=== PATIENT | female | born 1965 | race Caucasian/White ===

== ENCOUNTER 2018-08-09 16:53 | Emergency (ER) | payer MEDICARE, OTHER ==
--- NOTE | 2018-08-09 16:59 | PDOC ---
Rapid Medical Evaluation Time Seen by Provider: 08/09/18 16:58 Medical Evaluation: Allergies Allergy/AdvReac Type Severity Reaction Status Date / Time codeine [Codeine] Allergy ITCHING/DONALDO Verified 08/07/13 13:19 H cortisone [Cortisone] Allergy ITCHING Verified 08/07/13 13:19 RASH 08/09/18 16:58 I have performed a brief in person evaluation of this patient The patient presents with a chief complaint of 2 months of 08/14 RUQ pain radiating to the back and R leg. (+)diarrhea for 2 days. No urinary symptoms (+) h/o kidney stones Pertinent physical exam findings: In mild distress from pain, unlabored breathing. I have ordered the following: CBC, CMP, Lipase, UA, Ucx, PT/INR, RUQ sono. R kidney sono The patient will proceed to the ED for further eval 08/09/18 17:06 Discharge Disposition - Diagnosis Abdominal pain - Referrals - Patient Instructions - Post Discharge Activity
[2018-08-09 17:01] VITALS: BP 146/86; PULSE 87; TEMP 98.5; BMI 29.0
[2018-08-09 17:41] LABS: VENOUS PC02 46.5 mmHg (38-52); VENOUS PH 7.36 (7.32-7.42); VENOUS PO2 27.8 mmHg (28-48)
[2018-08-09 17:43] LABS: BASO % 2.6 % (0-2.0); HEMATOCRIT 39.9 % (32.4-45.2); HEMOGLOBIN 13.5 GM/dL (10.7-15.3); LYMPH % 34.7 % (8-40); MCHC 33.9 g/dl (32.0-36.0); MEAN CELL VOLUME 91.2 fl (80-96); MEAN PLT VOLUME 9.2 fl (7.5-11.1); NEUT % 52.7 % (42.8-82.8); PLATELET COUNT 257 K/MM3 (134-434); RBC 4.37 M/mm3 (3.60-5.2); RDW 13.1 % (11.6-15.6); WHITE BLOOD COUNT 5.3 K/mm3 (4.0-10.0)
[2018-08-09 18:06] LABS: ALBUMIN 4.2 g/dl (3.4-5.0); ALK PHOS 133 U/L (45-117); ANION GAP 6 MMOL/L (8-16); BILIRUBIN,TOTAL 0.5 mg/dL (0.2-1); BLOOD UREA NITROGEN 10 mg/dL (7-18); CALCIUM 9.4 mg/dL (8.5-10.1); CHLORIDE 107 mmol/L (98-107); CO2 28 mmol/L (21-32); CREATININE 0.8 mg/dL (0.55-1.3); GLUCOSE,RANDOM 78 mg/dL (74-106); LIPASE 109 U/L (73-393); MAGNESIUM 2.1 mg/dL (1.8-2.4); PHOSPHOROUS 3.4 mg/dL (2.5-4.9); POTASSIUM 3.9 mmol/L (3.5-5.1); SGOT/AST 33 U/L (15-37); SGPT/ALT 62 U/L (13-61); SODIUM 141 mmol/L (136-145); TOT PROT 7.8 g/dl (6.4-8.2)
--- NOTE | 2018-08-09 18:18 | PDOC ---
Attending Attestation - Resident Resident Name: Macario Reynoso - ED Attending Attestation I have performed the following: I have examined & evaluated the patient, The case was reviewed & discussed with the resident, I agree w/resident's findings & plan - HPI HPI: 08/09/18 19:37 The patient is a 52 year old female, with a significant past medical history of complex regional pain syndrome, nephrolithiasis, who presents to the emergency department with, 1 month of worsening right upper quadrant pain. As per patient , the pain has been worsening over the past 2 weeks with associated chills and diarrhea yesterday. She describes her pain as 10/10, worsening after eating, constant, and radiating to her back. Patient went to urgent care yesterday and was advised to report to the ED for further evaluation. She denies recent fevers, headache or dizziness. She denies recent nausea, vomit , or constipation. She denies recent dysuria, frequency, urgency or hematuria. She denies recent chest pain or shortness of breath. Allergies: codeine, cortisone Attestations - Attestations 08/09/18 19:38 Documentation prepared by Mariano Luevano, acting as medical technicians for Jess Leary MD.
[2018-08-09 18:38] LABS: INR 0.97 (0.83-1.09); PROTHROMBIN TIME (PATIENT) 11.5 SEC (9.7-13.0)
[2018-08-09] MEDS ORDERED: morphine CARPU-JECT 4 MG/1 ML DISP.SYRIN IVPUSH ONE (18:42)
[2018-08-09] MEDS ORDERED: morphine SULFATE 4 MG/ML VIAL ONE (18:46)
[2018-08-09 19:04] LABS: URINE APPEARANCE CLEAR; URINE BILIRUBIN NEGATIVE (<2.0 mg/dL); URINE COLOR LTYELLOW; URINE GLUCOSE (UA) NEGATIVE (NEGATIVE); URINE KETONE NEGATIVE (NEGATIVE); URINE LEUK ESTERASE NEGATIVE (NEGATIVE); URINE NITRITE NEGATIVE (NEGATIVE); URINE PROTEIN NEGATIVE (NEGATIVE); URINE UROBILINOGEN NEGATIVE mg/dL (0.2-1.0)
[2018-08-09 19:11] LABS: EPI CELLS RARE /HPF (FEW); URINE MUCUS RARE
--- NOTE | 2018-08-09 19:12 | PDOC ---
History of Present Illness - General Chief Complaint: Pain Stated Complaint: PCP SENT/PAIN Time Seen by Provider: 08/09/18 16:58 History Source: Patient Exam Limitations: No Limitations - History of Present Illness Initial Comments: 52 y/o F w/PMH of Complex regional pain syndrome, spinal disc herniations, nephrolithiasis presents to the ER with RUQ pain. RUQ started 1 month ago, worsened over the last 2 weeks and developed chills since yesterday. The pain moves from the RUQ to her back, is 10/10 in intensity, worse with food, and constant otherwise. Initially she thought it was due to her complex regional pain disorder and did not seek help. She went to Urgent care yesterday and was told to come to the ER but she was unable to make it until today. She also has diarrhea x3 days with no blood in stool. Denies chest pressure, SOB, sick contacts, dysuria, blood in urine, LE edema, vomiting. This is the first time she has felt this kind of pain. PMH: Complex regional pain syndrome PSHx: Multiple orthopedic surgeries. No abd surgeries reported SH: denies smoking. Social alcohol use. Denies drug use. Allergies: Codeine (itching), cortisone (itching) Meds: Nexium, Flexeril, Morphine 15 mg po qhs, Gabapentin Past History - Past Medical History Allergies/Adverse Reactions: Allergies Allergy/AdvReac Type Severity Reaction Status Date / Time codeine [Codeine] Allergy ITCHING/DONALDO Verified 08/09/18 16:58 H cortisone [Cortisone] Allergy ITCHING Verified 08/09/18 16:58 RASH Home Medications: Ambulatory Orders Bisacodyl [Bisacodyl -] 5 mg PO TID PRN #0 tablet. 08/12/13 Cyclobenzaprine HCl [Flexeril] 5 mg PO HS #0 tablet 08/12/13 Esomeprazole Mag Trihydrate [Nexium] 40 mg PO DAILY #0 capsule.ec 08/12/13 HYDROmorphone [Dilaudid -] 2 mg PO BID #0 tablet 08/12/13 Zolpidem Tartrate [Ambien] 10 mg PO HS #0 tablet 08/12/13 Naprosyn 08/09/18 Neurontin 08/09/18 Anemia: Yes Cancer: No CVA: No COPD: No Diabetes: No GI Disorders: Yes HTN: No - Surgical History Orthopedic Surgery: Yes (multiple on wrists shoulder knees bilaterally ankle) - Reproductive History (#): 5 Para: 4 - Suicide/Smoking/Psychosocial Hx Smoking Status: No Smoking History: Never smoked Have you smoked in the past 12 months: No Number of Cigarettes Smoked Daily: 2 Information on smoking cessation initiated: No Hx Alcohol Use: No Drug/Substance Use Hx: No Substance Use Type: None Hx Substance Use Treatment: No Review of Systems - Review of Systems Able to Perform ROS?: Yes Constitutional: Yes: Chills. No: Fever Respiratory: No: Shortness of Breath Cardiac (ROS): No: Chest Pain ABD/GI: Yes: Symptoms Reported (Abd pain in RUQ), Diarrhea, Nausea. No: Blood Streaked Bowels, Vomiting, Tarry Stools : No: Burning, Dysuria, Frequency *Physical Exam - Vital Signs Last Vital Signs Temp Pulse Resp BP Pulse Ox 98.5 F 87 20 146/86 100 08/09/18 16:58 08/09/18 16:58 08/09/18 16:58 08/09/18 16:58 08/09/18 16:58 - Physical Exam General Appearance: Yes: Appropriately Dressed, Mild Distress (Shaking) HEENT: positive: EOMI, Normal Voice Respiratory/Chest: positive: Wheezing (Mild). negative: Respiratory Distress, Crackles, Rhonchi Cardiovascular: positive: Regular Rhythm, Regular Rate, S1, S2. negative: Murmur Gastrointestinal/Abdominal: positive: Normal Bowel Sounds, Tender (RUQ), Soft, Other (+[place] sign) Musculoskeletal: negative: CVA Tenderness Extremity: negative: Pedal Edema Neurologic: positive: Fully Oriented, Alert, Normal Mood/Affect ED Treatment Course - LABORATORY CBC & Chemistry Diagram: 08/09/18 17:19 08/09/18 17:21 - ADDITIONAL ORDERS Additional order review: Laboratory Results 08/09/18 08/09/18 08/09/18 17:21 17:21 17:21 PT with INR 11.50 INR 0.97 VBG pH 7.36 POC VBG pCO2 46.5 POC VBG pO2 27.8 L Mixed VBG HCO3 25.9 H Sodium 141 Potassium 3.9 Chloride 107 Carbon Dioxide 28 Anion Gap 6 L BUN 10 Creatinine 0.8 Creat Clearance w eGFR > 60 Random Glucose 78 Calcium 9.4 Phosphorus 3.4 Magnesium 2.1 Total Bilirubin 0.5 AST 33 ALT 62 H Alkaline Phosphatase 133 H Creatine Kinase 92 Troponin I < 0.02 Total Protein 7.8 Albumin 4.2 Lipase 109 08/09/18 17:19 RBC 4.37 MCV 91.2 MCHC 33.9 RDW 13.1 D MPV 9.2 Neutrophils % 52.7 Lymphocytes % 34.7 Monocytes % 8.0 Eosinophils % 2.0 Basophils % 2.6 H - Medications Given in the ED: ED Medications Discontinued Medications Generic Name Dose Route Start Last Admin Trade Name Sebastián PRN Reason Stop Dose Admin Morphine Sulfate 4 mg 08/09/18 18:42 08/09/18 18:50 Morphine Injection - IVPUSH 08/09/18 18:43 4 mg ONCE ONE Administration Medical Decision Making - Medical Decision Making 08/09/18 19:05 Pt with RUQ pain on palpation. Rojo's positive. ALP at 133, slightly high. Lipase wnl. Awaiting abd U/S Pt given 4 mg IV morphine for pain 08/09/18 19:20 Abd U/S with no signs of acute cholecystitis. CBD 0.4 cm and unremarkable. No nephrolithiasis seen. 08/09/18 19:37 Pt's pain likely secondary to her complex regional pain syndrome. Will discharge home. Pt to follow up with her PCP w/in 1 week. To return to the ER if worsening of current symptoms or onset of new concerning symptoms. *DC/Admit/Observation/Transfer Diagnosis at time of Disposition: Abdominal pain - Discharge Dispostion Disposition: HOME Condition at time of disposition: Stable Decision to Admit order: No - Referrals - Patient Instructions Printed Discharge Instructions: DI for Abdominal Pain-Adult Additional Instructions: Follow up with your primary care physician within 1 week. If you develop worsening of your current symptoms or new concerning symptoms please come back the emergency room. - Post Discharge Activity
== END 2018-08-09 19:47 | disposition home or self-care (01) ==
LOC: JER 16:53
PROC: 3E033NZ Introduction of Analgesics, Hypnotics, Sedatives into Peripheral Vein, Percutaneous Approach (ICD-10-PCS; principal; 2018-08-09)
DX: R10.9 Unspecified abdominal pain (principal); G90.50 Complex regional pain syndrome I, unspecified
CPT/HCPCS: 36415; 76700-TC; 80053; 81003; 81015; 82550; 82803; 83690; 83735; 84100; 84484; 85025; 85610; 86850; 86900; 86901; 87086; 96374; 99283-25

== ENCOUNTER 2020-10-12 05:28 | Day surgery (SDC) | payer OTHER ==
[2020-10-12 08:03] VITALS: BMI 30.7
[2020-10-12] MEDS ORDERED: KETOROLAC TROMETHAMINE 30 MG/1 ML VIAL ONE ×2 (10:03→10:16)
[2020-10-12] MEDS ORDERED: PROPOFOL 20 ML ONE (10:03)
[2020-10-12] MEDS ORDERED: TRIAMCINOLONE ACETONIDE 40 MG/ML 10 ML VIAL IJ ONE (10:20)
[2020-10-12] MEDS ORDERED: IOHEXOL 180 MG/1 ML ML IJ ONE (10:20)
[2020-10-12] MEDS ORDERED: BUPIVACAINE HCL/PF 0.5% (5MG/ML) 10 ML VIAL IJ ONE (10:20)
[2020-10-12] MEDS ORDERED: LIDOCAINE HCL 1%, 10 MG/ML (50 mL VIAL) IJ ONE (10:20)
[2020-10-12] MEDS ORDERED: BETAMET ACET/BETAMET NA PH 30 MG/5 ML VIAL IJ ONE (10:20)
[2020-10-12 11:46] VITALS: BP 119/60; PULSE 84; TEMP 97
== END 2020-10-12 11:47 | disposition home or self-care (01) ==
LOC: JASU-SURG 05:28
PROVIDERS: ATTEND Physical Medicine & Rehabilitation
PROC: 3E0U33Z Introduction of Anti-inflammatory into Joints, Percutaneous Approach (ICD-10-PCS; principal; 2020-10-12 09:30)
DX: M16.12 Unilateral primary osteoarthritis, left hip (principal); M25.552 Pain in left hip
CPT/HCPCS: 76000-TC-FY